=== PATIENT | male | born 1960 | race African-American/Black ===

== ENCOUNTER 2024-02-21 13:01 | Outpatient (CLI) | payer OTHER | END 2024-02-21 13:02 | disposition home or self-care (01) | LOC: CSHULT 13:01 | DX: I50.9 Heart failure, unspecified (principal); R93.1 Abnormal findings on diagnostic imaging of heart and coronary circulation | CPT/HCPCS: 93306 ==

== ENCOUNTER 2024-11-07 09:05 | Day surgery (SDC) | payer BC ==
[2024-11-06 14:00] VITALS: BMI 35.3
[2024-11-07 10:10] LABS: #Basophils 0.03 10x3/uL (0.0-0.2); #Eosinophils 0.32 10x3/uL (0.0-0.5); #Monocytes 0.53 10x3/uL (0.0-1.1); #Neutrophils 1.71 10x3/uL (1.5-8.4); %Basophils 0.7 % (0.0-2.0); %Eosinophils 7.6 % (0.0-6.0); %Lymphocytes 38.5 % (18.0-47.0); %Monocytes 12.5 % (0.0-10.0); %Neutrophils 40.5 % (40.0-75.0); Hematocrit 43.2 % (38.8-50.0); Hemoglobin 13.2 g/dL (13.5-17.5); Mean Corpuscular Hemoglobin 25.3 pg (27.0-33.0); Mean Corpuscular Volume 82.9 fL (81.2-95.1); Platelet Count 245 10x3/uL (150-450); Red Blood Cell (RBC) Count 5.21 10x6/uL (4.32-5.72); White Blood Cell (WBC) Count 4.23 10x3/uL (3.5-10.5)
[2024-11-07 10:42] LABS: Anion Gap 14 mmol/L (10-20); BUN (Urea Nitrogen) 17 mg/dL (8.4-25.7); Calc. Creatinine Clearance 83 mL/min (70-130); Calcium 8.8 mg/dL (7.8-10.44); Carbon Dioxide 26 mmol/L (23-31); Chloride 105 mmol/L (98-107); Glucose 96 mg/dL (80-115); Potassium 4.2 mmol/L (3.5-5.1); Sodium 141 mmol/L (136-145)
[2024-11-07] MEDS ORDERED: PROPOFOL 20 ML ONE ×2 (11:03→13:05)
[2024-11-07] MEDS ORDERED: Lidocaine 1% w/Epinephrine 1:200K 30 ML VIAL ONE (11:25)
[2024-11-07] MEDS ORDERED: CEFAZOLIN 2 GM VIAL ONE (11:25)
[2024-11-07] MEDS ORDERED: SUCCINYLCHOLINE/SOD CL,ISO/PF 200 MG/10 ML SYRINGE FS ONE (11:38)
[2024-11-07] MEDS ORDERED: HYDROmorphone 0.5 MG/0.5 ML SYRINGE ONE (15:21)
== END 2024-11-07 16:33 | disposition home or self-care (01) ==
LOC: CSHSDC 09:05
PROVIDERS: ATTEND Specialist
PROC: 0CTC0ZZ Resection of Left Parotid Duct, Open Approach (ICD-10-PCS; principal; 2024-11-07)
PROC: 00BM0ZZ Excision of Facial Nerve, Open Approach (ICD-10-PCS; principal; 2024-11-07)
DX: K11.6 Mucocele of salivary gland (principal); I12.9 Hypertensive chronic kidney disease with stage 1 through stage 4 chronic kidney disease, or unspecified chronic kidney disease; N18.30 Chronic kidney disease, stage 3 unspecified; E11.22 Type 2 diabetes mellitus with diabetic chronic kidney disease; E78.5 Hyperlipidemia, unspecified; M10.9 Gout, unspecified; S91.301A Unspecified open wound, right foot, initial encounter; E66.9 Obesity, unspecified; Z68.35 Body mass index [BMI] 35.0-35.9, adult; Z90.49 Acquired absence of other specified parts of digestive tract; Z79.85 Long-term (current) use of injectable non-insulin antidiabetic drugs; Z79.84 Long term (current) use of oral hypoglycemic drugs; Z79.899 Other long term (current) drug therapy; X58.XXXA Exposure to other specified factors, initial encounter
CPT/HCPCS: 80048; 85025; 88307; 88341; 88342; 93005; 93010; A6258; C1889; J1171; J2250; J2704; J3010

== ENCOUNTER 2024-11-17 12:27 | Inpatient (IN) | payer BC ==
[~2024-11-17 12:27] MED LIST: Iopamidol 370 76% 100 ML VIAL ONE
[2024-11-17] MEDS ORDERED: Ketorolac Tromethamine 30 MG (1 mL) VIAL ONE (13:05)
[2024-11-17] MEDS ORDERED: Acetaminophen 500 MG TAB ONE (13:06)
[2024-11-17 13:31] LABS: #Basophils 0.03 10x3/uL (0.0-0.2); #Eosinophils 0.33 10x3/uL (0.0-0.5); #Monocytes 0.64 10x3/uL (0.0-1.1); #Neutrophils 4.34 10x3/uL (1.5-8.4); %Basophils 0.4 % (0.0-2.0); %Eosinophils 4.2 % (0.0-6.0); %Lymphocytes 31.7 % (18.0-47.0); %Monocytes 8.1 % (0.0-10.0); %Neutrophils 55.1 % (40.0-75.0); Hematocrit 41.5 % (38.8-50.0); Hemoglobin 13.0 g/dL (13.5-17.5); Mean Corpuscular Hemoglobin 25.7 pg (27.0-33.0); Mean Corpuscular Volume 82.2 fL (81.2-95.1); Platelet Count 265 10x3/uL (150-450); Red Blood Cell (RBC) Count 5.05 10x6/uL (4.32-5.72); White Blood Cell (WBC) Count 7.88 10x3/uL (3.5-10.5)
[2024-11-17 13:46] LABS: ALT (SGPT) 21 U/L (Less than 45); AST (SGOT) 16 U/L (11-34); Albumin 3.5 g/dL (3.1-4.5); Alkaline Phosphatase 93 U/L (40-110); Anion Gap 15 mmol/L (10-20); BUN (Urea Nitrogen) 13 mg/dL (8.4-25.7); Bilirubin, Total 1.2 mg/dL (0.3-1.2); Calc. Creatinine Clearance 0 mL/min (70-130); Calcium 8.6 mg/dL (7.8-10.44); Carbon Dioxide 27 mmol/L (23-31); Chloride 104 mmol/L (98-107); Globulin 3.7 g/dL (2.4-3.5); Glucose 119 mg/dL (80-115); Potassium 4.5 mmol/L (3.5-5.1); Sodium 141 mmol/L (136-145)
[2024-11-17 13:50] LABS: Troponin I 0.014 ng/mL (< 0.028)
[2024-11-17] MEDS ORDERED: Cefepime 2 GM VIAL ONE (16:07)
[2024-11-17] MEDS ORDERED: Guaifenesin DM 100-10/5 ML UDCUP PO PRN (16:34)
[2024-11-17] MEDS ORDERED: Ondansetron PF 4 MG/2 ML Vial IVP PRN (16:34)
[2024-11-17] MEDS ORDERED: Senokot S 8.6-50 MG TAB PO PRN (16:34)
[2024-11-17 16:55] LABS: Glucose, Urine (Dipstick) 50 mg/dL (Negative); Leukocyte Negative (Negative); Protein, Urine (Dipstick) 30 mg/dl (Neg-Trace); Specific Gravity, Urine 1.010 (1.005-1.030)
[2024-11-17 17:02] LABS: Bacteria/HPF Rare-Few HPF (None Seen); CAUTI Indications for Culture Fever or rigors; RBC/HPF None Seen HPF (0-3); Urine Culture Reflex No No; WBC/HPF 0-3 HPF (0-3)
[2024-11-17] MEDS: VANCOMYCIN 2 GRAM/400 ML BAG 2 GM in Premix 1 BAG IVPB SCH (18:18)
[2024-11-17 18:36] VITALS: BMI 36.3
[2024-11-17] MEDS: Famotidine/PF 20 mg/2ml Vial SLOW IVP SCH (19:04)
[2024-11-17] MEDS: ADMIXTURE FEE IVPB SCH (19:12)
[2024-11-17] MEDS: DIPHENHYDRAMINE IVPB SCH (19:12)
[2024-11-17] MEDS: SODIUM CHLORIDE IVPB SCH (19:12)
[2024-11-18] MEDS: Acetaminophen 325 MG TAB PO PRN (04:29)
[2024-11-18 05:38] LABS: #Basophils 0.03 10x3/uL (0.0-0.2); #Eosinophils 0.32 10x3/uL (0.0-0.5); #Monocytes 0.60 10x3/uL (0.0-1.1); #Neutrophils 4.93 10x3/uL (1.5-8.4); %Basophils 0.4 % (0.0-2.0); %Eosinophils 4.2 % (0.0-6.0); %Lymphocytes 22.5 % (18.0-47.0); %Monocytes 7.9 % (0.0-10.0); %Neutrophils 64.6 % (40.0-75.0); Hematocrit 36.1 % (38.8-50.0); Hemoglobin 11.1 g/dL (13.5-17.5); Mean Corpuscular Hemoglobin 25.3 pg (27.0-33.0); Mean Corpuscular Volume 82.4 fL (81.2-95.1); Platelet Count 210 10x3/uL (150-450); Red Blood Cell (RBC) Count 4.38 10x6/uL (4.32-5.72); White Blood Cell (WBC) Count 7.63 10x3/uL (3.5-10.5)
[2024-11-18 05:52] LABS: Anion Gap 14 mmol/L (10-20); BUN (Urea Nitrogen) 14 mg/dL (8.4-25.7); Calc. Creatinine Clearance 73 mL/min (70-130); Calcium 7.6 mg/dL (7.8-10.44); Carbon Dioxide 21 mmol/L (23-31); Chloride 110 mmol/L (98-107); Glucose 127 mg/dL (80-115); Potassium 4.1 mmol/L (3.5-5.1); Sodium 141 mmol/L (136-145)
[2024-11-18] MEDS: Enoxaparin 40 MG (0.4 mL) SYRINGE SC SCH (09:25)
[2024-11-18] MEDS: Lisinopril 20 MG TAB PO SCH (09:26)
[2024-11-18] MEDS: Ibuprofen 800 MG TAB PO PRN (14:41)
[2024-11-18 15:06] LABS: SARS-CoV-2 N1 Negative; SARS-CoV-2 N2 Negative; SARS-CoV-2 RNAse P1 Positive
[2024-11-20] MEDS: cefTRIAXone\\ROCEPHIN 2 GM in Sodium Chloride 0.9% 100 ML IVPB SCH (17:14)
[2024-11-21 03:51] LABS: #Basophils 0.03 10x3/uL (0.0-0.2); #Eosinophils 0.38 10x3/uL (0.0-0.5); #Monocytes 0.56 10x3/uL (0.0-1.1); #Neutrophils 3.83 10x3/uL (1.5-8.4); %Basophils 0.4 % (0.0-2.0); %Eosinophils 5.7 % (0.0-6.0); %Lymphocytes 28.3 % (18.0-47.0); %Monocytes 8.3 % (0.0-10.0); %Neutrophils 57.0 % (40.0-75.0); Hematocrit 38.0 % (38.8-50.0); Hemoglobin 12.2 g/dL (13.5-17.5); Mean Corpuscular Hemoglobin 26.2 pg (27.0-33.0); Mean Corpuscular Volume 81.5 fL (81.2-95.1); Platelet Count 225 10x3/uL (150-450); Red Blood Cell (RBC) Count 4.66 10x6/uL (4.32-5.72); White Blood Cell (WBC) Count 6.72 10x3/uL (3.5-10.5)
[2024-11-21 04:05] LABS: Anion Gap 11 mmol/L (10-20); BUN (Urea Nitrogen) 12 mg/dL (8.4-25.7); Calc. Creatinine Clearance 84 mL/min (70-130); Calcium 8.6 mg/dL (7.8-10.44); Carbon Dioxide 25 mmol/L (23-31); Chloride 105 mmol/L (98-107); Glucose 115 mg/dL (80-115); Potassium 3.9 mmol/L (3.5-5.1); Sodium 137 mmol/L (136-145)
[2024-11-21 08:09] VITALS: BP 121/63; TEMP 98.8
== END 2024-11-21 12:45 | disposition home or self-care (01) | DRG 872 ==
LOC: CSHERS 12:27 → CSHTELE 16:31
PROVIDERS: ADMIT Hospitalist; ATTEND Hospitalist
DX: A41.9 Sepsis, unspecified organism (principal); E78.5 Hyperlipidemia, unspecified; E11.9 Type 2 diabetes mellitus without complications; E66.01 Morbid (severe) obesity due to excess calories; J06.9 Acute upper respiratory infection, unspecified; E89.2 Postprocedural hypoparathyroidism; I10 Essential (primary) hypertension; Z98.890 Other specified postprocedural states; Z90.49 Acquired absence of other specified parts of digestive tract; Z89.021 Acquired absence of right finger(s); Z90.89 Acquired absence of other organs; Z79.899 Other long term (current) drug therapy; Z79.84 Long term (current) use of oral hypoglycemic drugs; Z79.891 Long term (current) use of opiate analgesic
CPT/HCPCS: 36415; 36416; 70450; 70490; 71045; 71275; 76999; 80048; 80053; 81001; 83605; 83880; 84145; 84484; 85025; 85379; 87040; 87086; 87252; 87428; 87633; 87635; 93005; 93970; 96374; 96375; J0692; J0696; J1200; J1308; J1650; J1885; J3375; J7120; Q9967